=== PATIENT | female | born 1970 | race Caucasian/White ===

== ENCOUNTER 2024-01-01 14:28 | Outpatient (CLI) | payer OTHER, SELFPAY ==
[2024-01-01 14:58] LABS: Hematocrit 38.5 % (37.0-47.0); Hemoglobin 12.7 g/dL (12.0-15.0); Mean Corpuscular Volume 93.9 fl (80-100); Mean Platelet Volume 9.6 fl (7.4-10.4); Platelet Count Result 263 k/mm3 (150-375); Red Cell Distribution Width 13.1 % (11.5-14.5)
[2024-01-01 15:08] LABS: Iron 76 ug/dL (37-170)
[2024-01-01 15:09] LABS: Albumin Level 4.4 g/dL (3.5-5.1); Anion Gap 7 mmol/L (4-12); Blood Urea Nitrogen 17 mg/dL (7-17); Calcium 9.1 mg/dL (8.4-10.2); Carbon Dioxide 31 mmol/L (22-30); Chloride 97 mmol/L (98-107); Estimated Glomerular Filt Rate > 60; Glucose 94 mg/dL (65-110); Potassium 4.2 mmol/L (3.4-5.0); Sodium 135 mmol/L (137-145)
[2024-01-01 15:14] LABS: Hemoglobin A1C 5.3 % (<5.7)
[2024-01-01 15:16] LABS: Prealbumin 23.8 mg/dL (17.6-36.0)
[2024-01-05 17:33] LABS: Vitamin B1 12 nmol/L (8-30)
== END 2024-01-01 14:29 | disposition home or self-care (01) ==
LOC: ANHLAB 14:33
PROVIDERS: Visit Provider Surgery Plastic and Reconstructive Surgery
DX: R63.4 Abnormal weight loss (principal)
CPT/HCPCS: 36415; 80048; 82040; 83036; 83540; 84134; 84425; 85027

== ENCOUNTER 2024-01-09 05:52 | Day surgery (SDC) | payer OTHER, SELFPAY ==
[2023-12-20 14:36] VITALS: BMI 21.4
[2024-01-09] VITALS (10 sets, daily range): BP systolic 139–182; BP diastolic 68–94; PULSE 66–86; RESP 14–20; TEMP 36.6–37.2; O2SAT 98–100; BMI 22.2
--- NOTE | 2024-01-09 07:01 | WPDANESEPPF ---
Anes - Initial Pre Proc Eval Procedure: Operation Date: 01/09/24 07:30 Proposed Procedures p Bilateral Brachioplasty - Jose Guadalupe Chapman MD Date/Time: 01/09/24 07:01 Surgeon: Jose Guadalupe Chapman MD Pre Op Diagnosis: Skin Laxity Patient Data Age: 53 Gender: F Height: 1.65 m Weight: 60.6 kg Last Vital Signs Temp 37.2 C 01/09/24 06:25 Pulse 86 01/09/24 06:25 Resp 15 01/09/24 06:25 BP 143/94 H 01/09/24 06:25 Pulse Ox 100 01/09/24 06:25 O2 Del Method Room Air 01/09/24 06:25 Allergies Allergy/AdvReac Type Severity Reaction Status Date / Time No Known Allergies Allergy Mild Verified 01/09/24 06:23 Home Medications Medication Instructions Recorded Confirmed Type pantoprazole 40 mg tablet,delayed 40 mg PO DAILY 12/20/23 12/20/23 History release Patient hx anesthesia problems: none Family hx anesthesia problems: none Results Review: All pre-operative results and documents have been reviewed as part of the pre-operative evaluation. [facility] Surgical History Surgical History History of endometrial ablation Social History Social History (Updated 03/01/23 @ 10:48 by Huma Peters MA) Smoking status: Never smoker Second hand tobacco smoke exposure: Yes (as a child) Alcohol intake: current Drinks per week: 7 Substance use: never Substance use type: does not use Lack of Transportation: No Lack of Food: Never True Current Housing: I Have Housing Concerned About Future Housing: No Difficulty Paying Gas/Electric Bills: No Difficulty Paying for Meds: No Currently Unemployed: No Education: Master's Degree or Higher Difficulty w/ Childcare or Family Care: No Living arrangements: with family 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 Gender identity (if verbalized by the patient): Female Sexual Orientation (if Verbalized by the Patient): Straight or Heterosexual Spiritual care concerns: No Anes - Eval Final PreProcedure Day of Procedure 01/09/24 07:01 Patient weight: normal Heart: regular rate and rhythm Lungs: clear to auscultation Airway: Mallampati scale class II Neurological: alert and oriented Last oral intake: >/= 8 hours ASA classification: II Emergent: no Anesthetic plan: proceed Anesthesia type and monitoring: general LMA and standard monitoring Results Review: All pre-operative results and documents have been reviewed as part of the pre-operative evaluation. Informed Consent: The patient's anesthetic plan and its attendant risks and benefits were discussed with the patient/family/POA. Questions were solicited and answers provided to the satisfaction of the patient/family/POA.
--- NOTE | 2024-01-09 07:14 | WPDHPUPDATE1 ---
History and Physical Update Update Date/Time: 01/09/24 07:14 History and Physical has been reviewed, including an updated exam of the patient. There are NO changes in the patient's condition. Risks, benefits, and alternatives have been discussed and questions answered. Patient agrees to proceed with procedure.
--- NOTE | 2024-01-09 07:14 | W.PM.PROC2 ---
Procedure Note - Detailed Date of Procedure 01/09/24 Pre-op Diagnosis Skin Laxity Post-op Diagnosis Same Procedure Performed Bilateral brachioplasty Surgeon Jose Guadalupe Chapman MD Anesthesia General Findings Tissue removed: Right 93 grams Left 78 grams Lipoaspirate: 1,100 cc Description of Procedure Here for the above procedures. Preoperatively risks, benefits, alternatives were discussed again today in extensive detail. I want to be very realistic about the risks involved as well as expectations. Made sure answered all of their questions to satisfaction. They voiced a clear understanding. Consent obtained. Patient was marked in the preoperative holding area with their verification. Taken to the operating placed supine on the operating table. Anesthesia was provided by anesthesiology. Prepped and draped in a standard sterile fashion. Surgical time-out was taken. Stab incisions were made and I tumesced with a tumescent solution. Once adequate time for hemostasis suction lipectomy was with a 4 mm basket cannula based on S.A.F.E. technique. This was completed based on preoperative planning, intraoperative observation, and rolling pinch test which was in full agreement. I completely de-fatted the planned resection area and a strip avulsion technique was completed. Starting proximal to distal a 10 blade was used to excise the intervening skin and this was tacked as we proceed to ensure good closure. This was closed using a 2-0 Quill, 3-0 strata fix, running subcuticular 4-0 Monocryl, and tissue glue. Dressings were placed. Tolerated the procedure well. Taken to the PACU without difficulty. All instrument sponge counts were correct at the end of the case. Estimated Blood Loss 50 Drains No Packing No Pathology None sent Complications No immediate complications Condition Stable Disposition PACU
[2024-01-09] MEDS: LACTATED RINGERS 1,000 ML 30 ML IV CONT ×2 (07:19→11:33)
[2024-01-09] MEDS: ceFAZolin SODIUM 2 GM/20 ML SW SYRINGE IV PUSH (07:32)
[2024-01-09] MEDS: TRANEXAMIC ACID 1,000 MG/10 ML AMPUL 1000 MG IV PUSH (07:36)
[2024-01-09] MEDS: LACTATED RINGERS IRRIG 1,000 ML, LIDOCAINE HCL 1% LOCAL INJ 50 ML, EPINEPHrine HCL INJ ... INFILTRATE (09:00)
[2024-01-09] MEDS: ONDANSETRON INJ 4 MG/2 ML VIAL IV PUSH (11:24)
[2024-01-09] MEDS: fentaNYL CITRATE INJ (*CRX) 100 MCG/2 ML VIAL 25 MCG IV PUSH ×8 (11:28→11:52)
[2024-01-09] MEDS: diphenhydrAMINE HCl INJ 50 MG/ML VIAL 12.5 MG IV PUSH ×2 (11:49→12:03)
[2024-01-09] MEDS: oxyCODONE HCL (*CRX) 5 MG TAB IR PO (12:57)
--- NOTE | 2024-01-09 13:04 | WPDANESPN ---
Anes - Prog Note Post-Op Date/Time: 01/09/24 13:04 Cardiovascular status: normal Respiratory status: normal Airway patency: baseline Mental status: baseline Post-Op hydration status: normal Vital Signs: Last Vital Signs Temp 36.6 C 01/09/24 11:02 Pulse 66 01/09/24 12:30 Resp 14 01/09/24 12:30 BP 147/80 H 01/09/24 12:30 Pulse Ox 100 01/09/24 12:30 O2 Del Method Room Air 01/09/24 12:30 O2 Flow Rate 8 01/09/24 11:15 Pain Score (VAS): 2 I/O: Intake & Output 01/08/24 01/09/24 01/09/24 23:59 07:59 15:59 Intake Total 200 Balance 200 Post-procedural complaints: none Patient Feedback: Patient satisfied with anesthetic care. Other Findings: Patient vital signs back to baseline. Patient denies nausea and vomiting. Patient's pain under control. Patient OK for discharge.
== END 2024-01-09 13:05 | disposition home or self-care (01) ==
PROVIDERS: Visit Provider Surgery Plastic and Reconstructive Surgery
PROC: (CPT 15836; principal; 2024-01-09 07:30)
DX: L91.9 Hypertrophic disorder of the skin, unspecified (principal)
CPT/HCPCS: 15836

== ENCOUNTER 2025-04-10 05:51 | Day surgery (SDC) | payer OTHER, SELFPAY ==
[2025-04-01 09:26] VITALS: BMI 23.3
--- NOTE | 2025-04-01 10:15 | PC.NURSE ---
Spoke with Joyce at Dr. Chapman's office. Informed her that during pre op phone call pt admitted that she does occasionally use a vape with nicotine and she is aware that Dr. Chapman will require a cotinine test day of procedure.
[2025-04-10] VITALS (8 sets, daily range): BP systolic 121–165; BP diastolic 71–98; PULSE 60–83; RESP 12–16; TEMP 36–36.3; O2SAT 97–100
--- OUTSIDE RECORDS SUMMARY | 2025-04-10 06:00 | XMS_ITS | Encounter Summary ---
Author Organization [facility] Address [address] [place] [address] Care Team Providers Care Vendor Management Specialist Name Role Phone Farheen Castelan MD Primary Care Provider Reason for Visit * Reason Onset Date Comments Follow Up 10/13/2014 H pylori posirti ve biopsy from EGD on 10/09/14. RX from Dr. Asencoi for 10 day course of Omeprazole 20 mg twice daily, Clarithromycin 500mg twice daily and Flagyl 500mg three times daily . Spoke with patient to discuss test result and treatment. Denies allergies. Pharmacy is [facility]([phone])- RX called to [facility] Encounter Details Date Type Department Care Team (Late st Contact Info) Description 10/13/2014 Telephone [facility] Operating Room [address] [id number] Socorro Valente RN Follow Up (H pylori posirtive biopsy from EGD on 10/09/14. RX from Dr. Asencio for 10 day course of Omeprazole 20 mg twice daily, Clarithromycin 500mg twice daily and Flagyl 500mg three times daily . Spoke with patient to discuss test result and treatment. Denies allergies. Pharmacy is [facility]([phone])- RX called to [facility] ) Social History Tobacco Use Types Packs/Day Years Used Date Smoking Tobacco: Never Alcohol Use Standard Drinks/Week Comments Yes 0 (1 standard drink = 0.6 oz pur e alcohol) wine seldom Comments Unknown Sex and Gender Information Value Date Recorded Sex Assigned at Not on file Legal Sex Female 9:37 AM CDT Gender Identity Not on file Sexual Orientation Not on file documented as of this encounter Plan of Treatment Not on file documented as of this encounter Visit Diagnoses Not on filedocumented in this encounter Care Teams Vendor Management Specialist Relationship Specialty Start Date End Date Farheen Castelan MD PCP - General Internal Medicine 10/01/14 documented as of this encounter
--- OUTSIDE RECORDS SUMMARY | 2025-04-10 06:00 | XMS_ITS | Encounter Summary ---
Author Organization [facility] Address [address] [place] [address] Care Team Providers Care Rigging Man Name Role Phone Noemy Sky MD Primary Care Provider [phone] Encounter Details Date Type Department Care Team (Late st Contact Info) Description 06/26/2023 Telephone [facility] - Ophthalmology [address] [place] [phone] Nia Carney MD [address] [place] [address] [place] [address] Social History Tobacco Use Types Packs/Day Years Used Date Smoking Tobacco: Never Smokeless Tobacco: Never Alcohol Use Standard Drinks/Week Comments Yes 0 (1 standard drink = 0.6 oz pur e alcohol) OCCASIONALLY Comments Unknown Sex and Gender Information Value Date Recorded Sex Assigned at Not on file 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 [place] [phone] PCP - General Family Medicine 03/17/16 [employer] Certified Histologic Technician 05/23/23 documented as of this encounter
--- OUTSIDE RECORDS SUMMARY | 2025-04-10 06:01 | XMS_ITS | Clinical Summary ---
Author Organization [facility] Address [address] [place] [phone] Phone Care Team Providers Care Heading Repairer Name Role Phone Unavailable Primary Care Provider Unavailabl e Allergies No known active allergies Medications hydrOXYzine (ATARAX) 25 MG tablet Take 25 mg by mouth 3 (three) times a day if needed for itching Active pantoprazole (PROTONIX) 40 MG EC tablet Take 40 mg by mouth in the morning and 40 mg in the evening. Active sertraline (ZOLOFT) 25 MG tablet Take 25 mg by mouth 1 (one) time each day Active labetalol (NORMODYNE) 200 MG tablet Take 0.5 tablets (100 mg total) by mouth in the morning and 0.5 tablets (100 mg total) in the evening. 30 tablet 5 01/13/2025 6 Active Active Problems Problem Noted Date Diagnosed Date Essential hypertension 01/13/2025 Elevated urine level of catecholamine 01/13/2025 Encounters Date Type Department Care Team Description 01/20/2025 1:20 PM CDT Office Visit [facility] [address] [place] [phone] Miki Valencia MD Chronic kidney disease stage 2 (Primary Dx) 01/13/2025 3:20 PM CDT Office Visit [facility] [address] [place] [phone] Miki Valencia MD Chronic kidney disease stage 2 (Primary Dx); Essential hypertension from Last 3 Months Social History Tobacco Use Types Packs/Day Years Used Date Smoking Tobacco: Never Smokeless Tobacco: Never Comments Unknown Sex and Gender Information Value Date Recorded Sex Assigned at Not on file Legal Sex Female 12:00 PM MDT Gender Identity Not on file Sexual Orientation Not on file Last Filed Vital Signs Vital Sign Reading Time Taken Comments Blood Pressure 161/93 01/20/2025 1:12 PM CDT Pulse 74 01/20/2025 1:12 PM CDT Temperature - - Respiratory Rate - - Oxygen Saturation - - Inhaled Oxygen Concentration - - Weight 66.7 kg (147 lb) 01/20/2025 1:12 PM CDT Height - - Body Mass Index - - Plan of Treatment Health Maintenance Due Date Last Done Comments Pneumococcal PPSV23 Highest Risk Adult (1 of 3 - PCV13) 11/08/1987 Influenza Vaccine (#1) 2024 02/06/2014 Insurance PM INTERFACED INSURANCE
--- OUTSIDE RECORDS SUMMARY | 2025-04-10 06:01 | XMS_ITS | Clinical Summary ---
Author Organization [facility] Address [address] [address] [place] [phone] Phone Care Team Providers Care Customer Expert Name Role Phone Farheen Castelan MD Primary Care Provider Allergies No known active allergies Medications zolpidem (AMBIEN) 10 mg tablet Take 10 mg by mouth nightly as needed for Insomnia. Active lisinopril (PRINIVIL) 10 mg tablet Take 10 mg by mouth daily. Active ondansetron (ZOFRAN ODT) 4 mg Tablet, Rapid Dissolve Place 1 Tab (4 mg) under tongue every 6 hours as needed for Nausea/Emesi s. 10 Tab 0 11/05/2014 Active Active Problems Problem Noted Date Diagnosed Date HTN (hypertension), benign 11/04/2014 GERD (gastroesophageal reflux disease) 5 Immunizations Immunization Administration Dates Next Due Influenza Seasonal Unspecified Formulation IM Social History Tobacco Use Types Packs/Day Years [...] Sign Reading Time Taken Comments Blood Pressure 142/88 11/05/2014 7:30 AM CDT Pulse 58 11/05/2014 7:30 AM CDT Temperature 36.6 C (97.8 F) 11/05/2014 7:30 AM CDT Respiratory Rate 18 11/05/2014 7:30 AM CDT Oxygen Saturation 100% 11/05/2014 7:30 AM CDT Inhaled Oxygen Concentration - - Weight 104.4 kg (230 lb 2 oz) 11/05/2014 6:00 AM CDT Height 165.1 cm (5' 5) 11/04/2014 9:15 AM CDT Body Mass Index 38.29 11/04/2014 9:15 AM CDT Plan of Treatment Health Maintenance Due Date Last Done Comments DTAP/TDAP/TD VACCINES (1 - Tdap) 11/08/1987 HEPATITIS B VACCINES (1 of 3 - 19+ 3-dose series) 10/21 HPV/Cotest (21-29) 1989 CERVICAL CANCER SCREENING 1998 HPV/Cotest (30-65) 1998 PAP SMEAR 1998 BREAST CANCER SCREENING 2008 COLORECTAL SCREENING 2013 Colorectal Cancer Screening 2013 FIT-DNA Q 3 years 2013 FIT/FOBT Q 1 year 2013 Flex Sig/CT Colonography Q 5 years 2013 ZOSTER VACCINE (1 of 2) 2018 INFLUENZA VACCINE (#1) 2024 02/06/2014 Medical Devices Implanted Type Area Presales Engineer Device Identifier Shelf Expiration Date Model / Serial / Lot Seamguard Bio 60 [id number] - [id number] Implanted:Qty: 4 on 11/04/2014 by Amari Asencio MD at [facility] N/A: Stomach [employer] 06/21/2017 [id number] / / [id number] Seamguard Bio 60 [id number] - [id number] Implanted:Qty: 1 on 11/04/2014 by Amari Asencio MD at [facility] N/A: Stomach [employer] 04/23/2017 [id number] / / [id number] Insurance BCBS BLUE ACCESS/TRUE BLUE PPO Advance Directives For more information, please contact: [phone] * Full Code (Latest Code Status on File) Date Activated Date Inactivated Comments 11/04/2014 12:45 PM 11/05/2014 2:39 PM * Full Code Date Activated Date Inactivated Comments 11/04/2014 9:33 AM 11/04/2014 12:45 PM * Full Code Date Activated Date Inactivated Comments 10/09/2014 6:33 AM 10/09/2014 11:41 AM Care Teams Customer Expert Relationship Specialty Start Date End Date Farheen Castelan MD PCP - General Internal Medicine 10/01/14
--- OUTSIDE RECORDS SUMMARY | 2025-04-10 06:01 | XMS_ITS | Data Portability ---
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 Cee Mammogram: 04/25/2023, normal. Managed by OBGYN Colonoscopy: A few years ago, normal Eye exam: Annually, wears contacts Dental exam: Q6 months [email or web address] Not available 02/27/2024 09:30:42 Plan of Treatment Reminders Order Date Submit Date Provider Last Modified By Organization Details Last Modified Time Details Appointments None recorded. Lab HbA1c (hemoglobin A1c), blood 2024 025 [email or web address] 4 [facility], [address] [place], [address], 5 11:23:43 CMP, serum or plasma 2024 025 4 [facility], [address] [place], [address], 5 11:24:14 CBC w/ auto diff [address] Outpatient Lab, [address] [place], [address], 5 11:22:41 TSH, serum, reflex free T4 2024 025 [email or web address] 4 [facility], [address] [place], [address], 5 11:23:13 lipid panel, serum 2023 024 [facility], [address] [place], [address], 4 18:05:38 CMP, serum or plasma 2023 024 [facility], [address] [place], [address], 4 18:05:38 TSH, serum, reflex free T4 2023 024 [facility], [address] [place], [address], 4 18:05:37 vitamin D, 25-hydroxy, total, serum [address] Lab, [address] [place], [address], 4 08:19:04 vitamin B12 + folate, serum or blood 2023 024 [facility], [address] [place], [address], 4 18:05:38 CBC w/ auto diff 2023 024 [facility], [address] [place], [address], 4 18:05:38 HbA1c (hemoglobin A1c), blood [address] Outpatient Lab, [address] [place], [address], 4 08:19:04 Referral None recorded. Procedures upper endoscopy procedure (EGD) (PROC) 2024 [facility] (Pre-Screen), [address] [place], [address], 5 08:51:28 Surgeries None recorded. Imaging MRI, brain, w/wo contrast - Please call patient to schedule. [address] Patient Access Centralized Scheduling, Centralized Scheduling, [address] [facility], [place], [address], 5 14:32:36 Medication Orders Medrol ([place]) 4 mg tablets in a dose pack 2024 025 [facility] #[id number], [address] [facility], [place], [place], [id number], 5 08:51:49 cyclobenzap rine 10 mg tablet 2024 025 [facility] #[id number], [address] [facility], [place], [place], [id number], 5 08:51:48 alprazolam 0.25 mg tablet 2024 025 [facility] #79269, [address] [facility], [place], [place], [id number], 5 08:51:42 hydroxyzine HCl 25 mg tablet 2023 024 [facility] #64816, [address] , [place], [place], [id number], 4 09:37:15 sertraline 25 mg tablet 2023 024 [facility] #92143, [address] , [place], [place], [id number], 09:37:20 Zepbound 2.5 mg/0.5 mL subcutaneou s solution 2023 024 [email or web address] [facility], [address], [address], [place], [place], [id number], 14:22:16 metoprolol succinate ER 50 mg tablet,exte nded release 24 hr [address] [facility] #90328, [address] [place], [place], [id number], 14:22:48 escitalopra m 10 mg tablet [address] [facility] #51161, [address] [place], [place], [id number], 14:23:10 Patient TargetsNo targets recorded. Patient Instructions Encounter Date Encounter Id Patient Instructions Last Modified By Organization Details Last Modified Time 10/03/2023 [id number] NO ETOH [email or web address] Not available 03/2024 12:09:30 PT WITH GASTRIC ULCER . CONTINUE PANTOPRAZOLE 40 MG BID X 12 WEEKS . THEN REPEAT EGD . [email or web address] Not available 10/03/2023 12:10:01 08/06/2024 [id number] PT WITH HX/O LAR GE . RECOMMEND EGD F/U EVALUATION . CONT PPI BID FOR NOW. . Risks benefits and complications were explained to the pt. ( BLEEDING PERFORATION , INFECTION , ). PT VERBALIZES UNDERSTANDING AND IS WILLING TO PROCEDE . [email or web address] Not available 08/06/2024 16:03:06 Reason for Referral None Reported. Results Created Date Observation Date Name Description Value Unit Range Abnormal Flag Note LastModifiedBy Organization Detail LastModifiedTime Result Notes None recorded. Problems Name Problem SNOMED Code Status Onset Date Resolution Date Notes Provider Name and Address Organization Details Recorded Time Anti-nucl ear factor detected 177106830 Active Not Available [facility] 4 07:03:31 Insomnia 909852561 Active Not Available [facility] 4 07:03:31 Abdominal pain 34104309 Completed 02/23/2024 ZAHEER Rodriguez [address], [address], [place], [address] , [employer] 4 19:08:31 Morbid obesity 055472329 Completed Not Available [facility] 3 16:40:37 Eruption 356161707 Completed 02/23/2024 ZAHEER Rodriguez [address], [address], [place], [address] , [employer] 4 19:08:56 Hypertens monalisa disorder 84450816 Active Not Available [facility] 4 07:03:31 Neuropath y 301606821 Active Not Available [facility] 4 07:03:31 Obesity 219169029 Completed 02/27/2024 ZAHEER Rodriguez [address], [address], [place], [address] , [employer] 4 09:23:54 Cervicova ginal cytology: Low grade squamous intraepit helial lesion 647588680 Active Not Available [facility] 4 07:03:31 Greater trochante josiah pain syndrome 3572903 Active Not Available [facility] 4 07:03:31 Irregular periods 98534344 Active Not Available [facility] 4 07:03:31 Neck pain 63609737 Completed 02/27/2024 ZAHEER Rodriguez [address], [address], [place], [address] , [employer] 4 09:19:15 Spinal stenosis in cervical region 90771909 Active Not Available [facility] 4 07:03:31 Moderate protein-c alorie malnutrit ion (weight for age 60-74 percent of standard) 503291514 Active ZAHEER Rodriguez [address], [address], [place], [address] , [employer] 4 19:16:38 Left Achilles tendiniti s 85942432698 9102 Active 2019 Not Available [facility] 4 07:03:31 Arthritis 3418657 Active 2019 neck Not Available [facility] 4 07:03:31 Body mass index 30+ - obesity 251846038 Completed 202002/23/2024 ZAHEER Rodriguez [address], [address], [place], [address] , [employer] 4 19:08:51 Gastroeso phageal reflux disease without esophagit is 696428831 Active 2020 Not Available [facility] 4 07:03:31 Post-surg ical malabsorp tion 714492756 Active 2021 Not Available [facility] 4 07:03:31 Vitamin D deficienc y 39102284 Active 2021 Not Available [facility] 4 07:03:31 History of bariatric surgical procedure 501228696 Active 2021 Not Available [facility] 4 07:03:31 Poor focus 767826285 Completed 202202/27/2024 ZAHEER Rodriguez [address], [address], [place], [address] , [employer] 4 09:19:19 Essential hypertens ion 29392284 Active 2023 ZAHEER Rodriguez [address], [address], [place], [address] , [employer] 5 08:49:55 Anxiety disorder 670601029 Active 2023 Noemy Sky MD [address], [address], [place], [address] , [facility] 4 08:08:32 Acute peptic ulcer 586806555 Active 2023 Sita Yu MD [address], [address], [place], [address] , [employer] 4 12:09:20 Gastric ulcer 943948453 Active 2024 Sita Yu MD [address], [address], [place], [address] , [employer] 5 16:02:29 Cervical radiculop athy 40785692 Active 2024 ZAHEER Rodriguez [address], [address], [place], [address] , [employer] 5 08:37:30 Migraine 44122245 Active 2024 ZAHEER Rodriguez [address], [address], [place], [address] , [employer] 5 08:38:07 Anxiety 81341509 Active 2024 ZAHEER Rodriguez [address], [address], [place], [address] , [facility] 5 08:40:35 Tachycard ia 9611365 Active 2024 ZAHEER Rodriguez [address], [address], [place], [address] , [facility] 5 08:49:46 Hypoglyce jayna 081368395 Active 2024 ZAHEER Rodriguez [address], [address], [place], [address] , [facility] 5 12:06:22 Notes:back /neck problems Problem Notes None recorded. Procedures Surgical History Date Name Laterality Status Provider Name and Address Organization Details Recorded Time 04/25/19 24 Most Recent Mammogram completed Ila Lee LPN [employer] 05/10/2023 15:35:21 04/26/19 22 LAPAROSCOPY, SURGICAL, GASTRIC RESTRICTIVE PROCEDURE; REVISION OF ADJUSTABLE GASTRIC RESTRICTIVE DEVICE COMPONENT ONLY (SURG) completed Not Available [facility] 06/21/2022 16:41:37 03/11/20 21 EGD completed Not Available [facility] 16:39:55 Imaging Results None recorded. Procedure Notes None recorded. Medical Equipment None Reported. Allergies No known drug allergies Medications Name Sig Start Date Stop Date Status Note LastModified by Organization Details LastModified Time cyclobenz aprine 10 mg tablet TAKE 1 TABLET BY MOUTH THREE TIMES DAILY NEEDED active Not Available Not Available No t Available amoxicill in 500 mg capsule 09/03 completed Not Available Not Available Not Available fluconazo le 100 mg tablet TAKE 1 TABLET BY MOUTH DIRECTED 04/02 completed Not Available Not Available Not Available prednison e 10 mg tablet TAKE 4 TABLETS BY MOUTH EVERY MORNING FOR 5 DAYS 02/23 completed Not Available Not Available Not Available doxycycli ne hyclate 100 mg capsule 08/17 completed Not Available Not Available Not Available ketoconaz ole 2 % shampoo 08/21 completed Not Available Not Available Not Available clindamyc in HCl 300 mg capsule TAKE ONE CAPSULE BY MOUTH BY MOUTH THREE TIMES DAILY 12/12 completed Not Available Not Available Not Available trazodone 50 mg tablet TAKE 1 TABLET BY MOUTH EVERY DAY 08/21 completed Not Available Not Available Not Available azithromy remigio 250 mg tablet TK PO UTD 08/06 completed Not Available Not Available Not Available ibuprofen 800 mg tablet active Not Available Not Available Not Available nystatin 100,000 unit/gram topical ointment APPLY TWICE DAILY FOR 10 DAYS 06/23 completed Not Available Not Available Not Available fluconazo le 150 mg tablet TAKE 1 TABLET BY MOUTH 1 TIME 04/02 completed Not Available Not Available Not Available metoprolo l succinate ER 50 mg tablet,ex tended release 24 hr TAKE 1 TABLET BY MOUTH EVERY DAY active Not Available Not Available No t Available clarithro mycin 500 mg tablet active Not Available Not Available No t Available cephalexi n 250 mg capsule TK ONE C PO BID FOR 10 DAYS 05/11 completed Not Available Not Available Not Available hydrocodo ne 5 mg-acetam inophen 325 mg tablet TAKE 1 TABLET BY MOUTH EVERY 6 HOURS NEEDED FOR PAIN 02/22 completed Not Available Not Available Not Available meloxicam 15 mg tablet TAKE 1 TABLET BY MOUTH EVERY DAY 01/07 completed Not Available Not Available Not Available Elidel 1 % topical cream APPLY A THIN LAYER TO THE AFFECTED AREA(S) BY TOPICAL ROUTE 2 TIMES PER DAY ; RUB IN GENTLY AND COMPLETE LY active Not Available Not Available No t Available ondansetr on HCl 4 mg tablet TAKE 1 TABLET BY MOUTH EVERY 6 HOURS NEEDED FOR NAUSEA 08/06 completed Not Available Not Available Not Available cephalexi n 250 mg tablet TAKE 1 TABLET BY MOUTH TWICE A DAY FOR 10 DAYS 05/11 completed Not Available Not Available Not Available propranol ol ER 60 mg capsule,2 4 hr,extend ed release TAKE 1 CAPSULE BY MOUTH DAILY 08/21 completed Not Available Not Available Not Available penicilli n V potassium 500 mg tablet 08/17 completed Not Available Not Available Not Available metronida zole 500 mg tablet TAKE 1 TABLET BY MOUTH THREE TIMES DAILY 04/02 completed Not Available Not Available Not Available phentermi ne 37.5 mg tablet Take 1 tablet every day by oral route. 07/03 completed Not Available Not Available Not Available amlodipin e 5 mg tablet TAKE 0.5 TABLET BY MOUTH EVERY DAY 08/21 completed Not Available Not Available Not Available ciproflox acin 500 mg tablet TK 1 T PO BID active Not Available Not Available No t Available sulfameth oxazole 800 mg-trimet hoprim 160 mg tablet TAKE 1 TABLET BY MOUTH TWICE A DAY FOR 7 DAYS 02/27 completed Not Available Not Available Not Available tramadol 50 mg tablet active Not Available Not Available Not Available triamcino lone acetonide 0.1 % topical cream APPLY EXTERNAL LY TO THE AFFECTED AREA TWICE DAILY DIRECTED 08/21 completed Not Available Not Available Not Available prednison e 10 mg tablets in a dose pack Take 1 tab by mouth, 3 times a day for 3 daysTake 1 tab by mouth 2 times a day for 2 daysTake 1 tab by mouth once a day for 1 day 02/23 completed Not Available Not Available Not Available Celebrex 200 mg capsule Take 1 capsule twice a day by oral route. 05/18 completed Not Available Not Available Not Available cefadroxi l 500 mg capsule 09/03 completed Not Available Not Available Not Available meloxicam 7.5 mg tablet TAKE 1 TABLET BY MOUTH EVERY DAY active Not Available Not Available No t Available oxycodone -acetamin ophen 5 mg-325 mg tablet TAKE 1 TABLET BY MOUTH EVERY 6 HOURS NEEDED FOR PAIN 08/06 completed Not Available Not Available Not Available amoxicill in 875 mg tablet TAKE 1 TABLET BY MOUTH TWICE A DAY 06/23 completed Not Available Not Available Not Available alprazola m 0.25 mg tablet Take 1 tablet 3 times a day by oral route as needed for 30 days, for insomnia and anxiety. 2024 active Not Available Not Available Not Avai lable ciproflox acin 0.3 % eye drops 09/03 completed Not Available Not Available Not Available Kenalog 10 mg/mL suspensio n for injection In office injectio n administ ered by the provider 02/23 completed [facility]: [phone] 08-10 Not Available Not Available Not Available amlodipin e 10 mg tablet 08/06 completed Not Available Not Available Not Available benzonata te 100 mg capsule TAKE ONE CAPSULE BY MOUTH EVERY 6 HOURS 09/03 completed Not Available Not Available Not Available pantopraz ole 40 mg tablet,de layed release TAKE 1 TABLET BY MOUTH TWICE DAY 2024 active Not Available Not Available Not Avai lable erythromy remigio 5 mg/gram (0.5 %) eye ointment 02/22 completed Not Available Not Available Not Available tacrolimu s 0.1 % topical ointment active Not Available Not Available Not Available triamcino lone acetonide 0.1 % topical ointment APPLY TWICE DAILY FOR 10 DAYS 06/23 completed Not Available Not Available Not Available lisinopri l 10 mg tablet Take 1 tablet every day by oral route as directed . 2014 active Not Available Not Available Not Avai lable prednison e 50 mg tablet TAKE 1 TABLET BY MOUTH EVERY DAY FOR 5 DAYS 09/03 completed Not Available Not Available Not Available polymyxin B sulfate 10,000 unit-trim ethoprim 1 mg/mL eye drops 09/03 completed Not Available Not Available Not Available docusate sodium 100 mg capsule TAKE ONE CAPSULE BY MOUTH TWICE DAILY 08/06 completed Not Available Not Available Not Available gabapenti n 300 mg capsule TAKE ONE CAPSULE BY MOUTH 3 TIMES A DAY 10/06 completed once daily Not Available Not Available Not Available sertralin e 25 mg tablet TAKE 1 TABLET BY MOUTH DAILY DIRECTED 2024 active Not Available Not Available Not Avai lable omeprazol e 20 mg capsule,d elayed release active Not Available Not Available Not Available diclofena c sodium 75 mg tablet,de layed release Take 1 tablet twice a day by oral route. 08/17 completed Not Available Not Available Not Available hydrocort isone 2.5 % topical cream 05/11 completed Not Available Not Available Not Available hydroxyzi ne HCl 25 mg tablet TAKE 1 TABLET BY MOUTH 3 TIMES DAILY NEEDED FOR ANXIETY 2024 active Not Available Not Available Not Avai lable codeine 10 mg-guaife nesin 100 mg/5 mL oral liquid TAKE 10 ML BY MOUTH AT BEDTIME NEEDED FOR COUGH 09/03 completed Not Available Not Available Not Available gabapenti n 100 mg capsule 05/11 completed Not Available Not Available Not Available metoprolo l succinate ER 25 mg tablet,ex tended release 24 hr TAKE 1 TABLET BY MOUTH EVERY DAY 07/26 completed Not Available Not Available Not Available ibuprofen 600 mg tablet TK 1 T PO TID WF active Not Available Not Available No t Available levofloxa remigio 750 mg tablet TAKE 1 TABLET BY MOUTH EVERY DAY 04/02 completed Not Available Not Available Not Available zolpidem 10 mg tablet TAKE 1 TABLET BY MOUTH AT BEDTIME 02/27 completed Not Available Not Available Not Available methylpre dnisolone 4 mg tablets in a dose pack FOLLOW PACKAGE DIRECTIO NS active Not Available Not Available No t Available albuterol sulfate HFA 90 mcg/actua tion aerosol inhaler INL 2 PUFFS PO QID active Not Available Not Available No t Available propranol ol 20 mg tablet TAKE 1 TABLET BY MOUTH THREE TIMES DAILY 08/21 completed Not Available Not Available Not Available ketoconaz ole 2 % topical cream active Not Available Not Available Not Available ondansetr on 4 mg disintegr ating tablet active Not Available Not Available Not Available methylphe nidate ER 18 mg tablet,ex tended release 24 hr TAKE 1 TABLET BY MOUTH EVERY MORNING 08/21 completed Not Available Not Available Not Available betametha sone dipropion ate 0.05 % lotion APPLY TO SCALP EVERY NIGHT AT BEDTIME 08/21 completed Not Available Not Available Not Available Ambien 5 mg tablet Take 1 tablet twice a day by oral route as directed . 06/03 completed Internal note: Suzan sewell note: spoke to pharmacy and changed the RX Not Available Not Available Not Available Lovenox 40 mg/0.4 mL subcutane ous syringe Inject 0.4 mL every day by subcutan eous route as directed for 10 days. 07/26 completed Not Available Not Available Not Available diazepam 5 mg tablet TAKE ONE-HALF TO ONE TABLET BY MOUTH NEEDED AT BEDTIME 09/03 completed Not Available Not Available Not Available progester one micronize d 100 mg capsule TAKE 1 CAPSULE BY MOUTH EVERY NIGHT 08/06 completed Not Available Not Available Not Available amoxicill in 875 mg-potass ium clavulana te 125 mg tablet TAKE 1 TABLET BY MOUTH TWICE A DAY 05/11 completed Not Available Not Available Not Available methylphe nidate ER 27 mg tablet,ex tended release 24 hr TAKE 1 TABLET BY MOUTH EVERY MORNING 08/21 completed Not Available Not Available Not Available escitalop penny 10 mg tablet TAKE 1 TABLET BY MOUTH EVERY DAY 08/06 completed Not Available Not Available Not Available June05/12 (21) 1 mg-20 mcg tablet TAKE 1 TABLET BY MOUTH EVERY DAY 05/05 completed Not Available Not Available Not Available bupropion HCl XL 150 mg 24 hr tablet, extended release TAKE 1 TABLET BY MOUTH EVERY DAY 08/21 completed Not Available Not Available Not Available nitrofura ntoin monohydra te/macroc rystals 100 mg capsule TAKE 1 CAPSULE BY MOUTH TWICE DAILY 04/02 completed Not Available Not Available Not Available eszopiclo ne 3 mg tablet TAKE 1 TABLET BY MOUTH AT BEDTIME 08/06 completed Not Available Not Available Not Available eszopiclo ne 1 mg tablet TAKE 1 TABLET BY MOUTH AT BEDTIME 08/21 completed Not Available Not Available Not Available Lyrica 75 mg capsule Take 1 capsule twice a day by oral route. 05/18 completed Not Available Not Available Not Available Rozerem 8 mg tablet Take 1 tablet every day by oral route. 05/18 completed Not Available Not Available Not Available calcium once daily 2014 active Not Available Not Available Not Avai lable Fish Oil once daily 2014 active Not Available Not Available Not Avai lable cyclobenz aprine 07/31 completed Not Available Not Available Not Available Mobic 06/23 completed as needed Not Available Not Available Not Available multivita min 08/06 completed Not Available Not Available Not Available Calcium Citrate + D 08/21 completed Not Available Not Available Not Available lidocaine (PF) 10 mg/mL (1 %) injection solution In office injectio n administ ered by the provider 02/23 completed [facility]: [phone] Not Available Not Available Not Available doxycycli ne monohydra te 40 mg capsule,i mmediate - delay release 08/17 completed Not Available Not Available Not Available Nascobal 500 mcg/spray nasal spray active Not Available Not Available Not Available SulfaClea nse 8-4 8 %-4 % topical suspensio n active Not Available Not Available Not Available Topicort 0.25 % topical spray active Not Available Not Available Not Available Lortab Elixir 10 mg-300 mg/15 mL oral solution active Not Available Not Available Not Available Soolantra 1 % topical cream 08/17 completed Not Available Not Available Not Available Vitamin B12 08/06 completed Not Available Not Available Not Available FreeStyle Tosha 3 Plus Sensor device Use on upper arm for CGM, change every 10 days 2024 active Not Available Not Available Not Avai lable Zepbound 2.5 mg/0.5 mL subcutane ous solution Inject 0.5 ml SQ every 10-14 days for weight maintena nce 08/06 completed Not Available Not Available Not Available Vitals Date Recorded Body height Body mass index (BMI) Body weight Oxygen saturation Heart rate Systolic And Diastolic Provider Name and Address Organization Details Last Updated DateTime 5 166.37 cm 21 kg/m2 11678.8 2 g 98 % 74 /min 106/66 mm[Hg] ANGEL Talamantes [place] [facility] [employer] [facility] 5 14:21:41 Date Recorded Body height Body mass index (BMI) Body weight Body temperature Heart rate Oxygen saturation Systolic And Diastolic Provider Name and Address Organization Details Last Updated DateTime 4 166.37 cm 22.9 kg/m2 38615.9 3 g 97.7 [degF] 78 /min 98 % 162/98 mm[Hg] Leti Garrido RN [facility] 4 07:53:55 Date Recorded Body height Body mass index (BMI) Body weight Heart rate Oxygen saturation Systolic And Diastolic Provider Name and Address Organization Details Last Updated DateTime 4 166.37 cm 23.1 kg/m2 91178.5 2 g 75 /min 98 % 104/62 mm[Hg] ANGEL Talamantes [place] [facility] 4 10:51:27 Date Recorded Body height Body mass index (BMI) Body weight Body temperature Oxygen saturation Heart rate Systolic And Diastolic Provider Name and Address Organization Details Last Updated DateTime 5 165.1 cm 23.9 kg/m2 66132.5 1 g 99.9 [degF] 95 % 78 /min 168/88 mm[Hg] Billie Haley RN [facility] 5 08:27:11 Date Recorded Body height Body mass index (BMI) Body weight Body temperature Heart rate Respiratory rate Oxygen saturation Systolic And Diastolic Provider Name and Address Organization Details Last Updated DateTime 4 166.37 cm 21.9 kg/m2 08604.6 6 g 97.5 [degF] 81 /min 18 /min 99 % 130/82 mm[Hg] ZAHEER Rodriguez [address] [facility], [address], [place], [address], [place] [facility] 4 09:35:23 Social History Question Answer Notes LastModified by Organizat ion Details LastModified Time Tobacco Smoking Status Never Smoker Not Available [facility] 06/21/2022 16:39:54 Do You Use Your Seat Belt Or Car Seat Routinely? Yes Information not available 02/27/2024 Do You Participate In Social Media? Yes Information not available 02/27/2024 Sex: Unknown Functional Status Question Answer Note LastModified by Organizat ion Details LastModified Time What is your level of alcohol consumption? 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 [id number] [facility] Information not available 02/27/2024 Family History Nothing Reported Notes:adopted @ Medical History Condition Response HYPERTENSION Y Gynecological History Statement/Question Response Most Recent Mammogram 04/25/2023 Obstetrics History GPAL:G 0 P 0 0 0 0 Immunizations Vaccine Type Date Status Note Provider Nam e and Address Organization Details Recorded Time COVID-19, mRNA, LNP-S, PF, 30 mcg/0.3 mL dose 05/10/2020 completed ZAHEER Rodriguez [facility], [address] [address], [place], [address], [facility] [employer] [facility] [employer] 02/23/2024 19:15:30 COVID-19, mRNA, LNP-S, PF, 30 mcg/0.3 mL dose 05/31/2020 completed ZAHEER Rodriguez [place] [facility], [address] [address], [place], [address], Immediately [facility] [employer] 02/23/2024 19:15:30 Influenza, high-dose, trivalent, PF 03/20/2014 completed ZAHEER Rodriguez [facility] [facility], [address] [address], [place], [address], Immediately [facility] [employer] 02/23/2024 19:15:31 Past Encounters Encounter ID Performer Location Encounter Start Date Encounter Closed Date Diagnosis/Indication Diagnosis SNOMED-CT Code Diagnosis ICD10 Code Diagnosis IMO Codes Diagnosis Note [id number] VJ Verdin S_G Ortho Chris Mclain [address] [place] [address] 01/07/2021 00:00:00 01/07/2021 15:24:59 [id number] _ATHN_MIGR ATION_1 _ATHENA_M IGRATION_ DEFAULT_1 _1 , 02/23/2021 00:00:00 02/23/2021 16:55:53 [id number] VJ Merrill [address] [address] 02/28/2021 00:00:00 02/28/2021 16:18:43 [id number] _ATHN_MIGR ATION_1 _ATHENA_M IGRATION_ DEFAULT_1 _1 , 03/24/2021 00:00:00 03/25/2021 10:58:55 [id number] _ATHN_MIGR ATION_1 _ATHENA_M IGRATION_ DEFAULT_1 _1 , 04/11/2021 00:00:00 04/11/2021 18:58:43 [id number] _ATHN_MIGR ATION_1 _ATHENA_M IGRATION_ DEFAULT_1 _1 , 05/16/2021 00:00:00 05/16/2021 16:46:48 [id number] _ATHN_MIGR ATION_1 _ATHENA_M IGRATION_ DEFAULT_1 _1 , 07/26/2021 00:00:00 07/26/2021 12:16:19 [id number] Noemy Sky MD [address] [address] 04/02/2023 08:01:13 04/02/2023 08:42:48 Insomnia 614338234 G47.09 Will do trial of trazodone, but symptoms most likely stem from anxiety/OC D. Poor focus 532587099 H52 .7 Anxiety vs. OCD vs. ADHDPt. 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 She denies panic attacks. No depression .She is aware she will need eval by psychiatry to get formal diagnosis of ADHD to be able to start any stimulant medication and will schedule on her own.Will do a trial of bupropion. [id number] Noemy Sky MD [address] [address] 08/22/2023 07:43:15 08/22/2023 08:17:06 Essential hypertension 26991161 I10 add metoprolol ER 50 mg dailyconti nue amlodipine 10 mg dailyf/u by portal in 2 weeks Anxiety disorder F41.9 escitalopr am 10 mg po qday with food [id number] Sita Yu MD [facility] General Surgery [address] [address] 10/03/2023 10:46:16 10/03/2023 11:42:53 Acute peptic ulcer 415013708 K27.[id number] MD [address] [address] 02/27/2024 09:08:08 02/27/2024 10:06:18 Adult health examination 818452431 Z00.00 Health maintance reviewedPT overall healthyPra cticing healthy diet and physical exerciseDi scussed importance of high protein and vitamin diet Anxiety disorder F41.9 Increased anxiety and difficulty focusing. Trouble with racing thoughts while trying to sleep Insomnia 128214834 G47.0 9 Largely related to anxiety and inability to shut off her thoughts. 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 Typically resolves with steroids Migraine 46206609 G43.90 9 [address]707 Current headache rated /10States this is persistent Did have a CT 09/2024 which was benignNurt ec given in office, advised to take EOD Anxiety 39662227 F41.9 90598 Increased anxiety and difficulty focusing. Trouble with racing thoughts while trying to sleep Tachycardia 2724140 R00. 0 90155 EpisodicCu rrently taking metoprolol Freestyle tosha given in office Essential hypertension 43500148 I10 50244 has hypertensi ve episodes that are symptomati c but is hypotensiv e at baseline Health Concerns Section Related Observation LastModified by Organization Detai ls LastModified Time None Recorded Concern Status LastModified by Organization Details LastModified Time None Recorded Advance Directives Directive None Recorded Payers Insurance Date Sequence Insurance Name Policy Number Policy De Jesus Covered Member ID De Jesus Member ID Guarantor Name 12/12/2024 1 [place] [id number] Salena Khan [id number] Salena Khan 12/12/2024 1 [place] [id number] Salena Khan [id number] Salena Khan 12/25/2024 1 UMR [id number] Salena Khan [id number] Salena Khan Notes Date Note Type Note Provider Name and Address Organization Details Recorded Time 08/22/2023 text/html ROS as noted in the HPI Had ER visit on , thought she might she have been dehydrated. 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 [facility] 09/09/2023 15:00:23 10/03/2023 text/html ROS as noted in the HPI SALENA WAS SEEN IN THE OFFICE TODAY FOR A F/U . PT HAS PUD X 2 IN THE PYLORIC CHANNEL. SHE REPORTS DOING BETTER . SHE IS OFF ETOH , AND SHE IS ON PANTOPRAZOLE 40 MG BID. TODAY SHE REPORTS FEELING BETTER . Sita Yu MD [address], [address], [place], [address], [facility] [employer] [facility] 10/03/2023 12:10:20 02/27/2024 text/html Salena Khan is a 53-year-old female patient here today to establish care. She was previously under the care of Dr. Sky her past medical history significant for hypertension. This is currently managed with lifestyle implementations Her BP on arrival is 130/82 she has a history of gastric bypass. She also took semaglutide for weight maintenance, but has been off of it for a while. She would like to restart a maintenance dose. She has a history of anxiety. She has taken anxiety medications in the past and was treated for ADHD for a short time. She found stimulants ineffective. She would like to try another anxiety medication. She has a history of insomnia. In the past she has taken trazadone and lunesta. She states that with these she could fall asleep but could not maintain sleep. She states she has racing thoughts that do not allow her to sleep. History of acid reflux and peptic ulcers, well managed with pantoprazole 40 mg once daily. Had an EGD a few weeks ago and found that ulcers had healed. CBC and CMP WNLs 09/21/23, last TSH, A1C, lipid panel unknown. Would like annual labs today Flu shot: Will get at work this yearCOVID vaccines: 05/10/2020, 05/31/2020Tdap: UTD per ptShingrix: [facility]: 02/2023, scheduled for end of 02/[address] Sortommogram: 04/25/2023, normal. Managed by OBGYNColonoscopy: A few years ago, normalEye exam: Annually, wears contactsDental exam: Q6 months ZAHEER Rodriguez [address], [address], [place], [address], [employer] 02/27/2024 10:05:44 08/06/2024 text/html ROS as noted in the HPI SALENA WAS SEEN IN THE OFFICE TODAY FOR A F/U. PT IS S/P SUNNY- EN- Y GBY WT LOSS SURGERY . PT DEVELOPED A SEVERE ANASTAMOTIC ULCER. . SHE IS S/P EGD . VIV NEGATIVE . PT IS A MODERATE WINE DRINKER . SHE IS STILL TAKING PANTOPRAZOLE 40 MG BID. SHE REPORTS OCCASSIONAL EPIGASTRIC DISCOMFORT. Sita Yu MD [address], [address], [place], [address], [employer] 08/06/2024 16:03:32 12/12/2024 text/html Salena Khan is a 54 year old female patient here today for a sick concern. She notes she has been experiencing episodes of ice pick headaches on the left side of her head. She states when this occurs she is light-headed, dizzy, diaphorectic, hypertensive, and tachycardiac. She states her blood pressure will reach as high as 200s/100s. She states she has has blood pressure and tachycardiac episodes for many years and has seen cardiology for this in the past and had no resolution.She is not drinking a lot of caffeine at this time.She is taking metoprololBP is random these days. Elevated today at 168/88 She notes the headaches are currently present and are persistent. She also notes that she has issues in the C-spine and this is flaring right now. She notes that she is not sleeping now. She can fall asleep but typically wakes up around midnight and cannot fall back asleep.She has previously taken ambien, trazodone, lunesta.Insomnia closely related to racing thoughts Jarred Rodriges, ZAHEER [address], [address], [place], [address], Immediately [facility] [employer] 12/12/2024 11:15:05 OBGyn Episode No OBEpisode recorded.
--- OUTSIDE RECORDS SUMMARY | 2025-04-10 06:01 | XMS_ITS | Clinical Summary ---
Author Organization [facility] [address] Address [address] 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 This disclosure is being madepursuant to the Care Everywhere program and may not contain all information available regarding this patient. Last updated 18.[facility] Allergies No known active allergies Medications * Be aware that medications may not be up to date on this document. Alwaysverify current medications with the patient. multivitamin daily (THERAGRAN) tablet Take 1 (one) tablet by mouth daily with food Active biotin 5 MG tablet Take 1 (one) tablet by mouth once daily Active Progesterone 100 MG capsule Take 1 (one) capsule by mouth 4 Active magnesium 30 MG tablet Take 1 (one) tablet by mouth once daily Active eszopiclone (Lunesta) 3 MG tablet Take 1 (one) tablet by mouth at bedtime 4 Active triamcinolone acetonide (Kenalog) 0.1 % cream APPLY EXTERNALLY TO THE AFFECTED AREA TWICE DAILY DIRECTED 4 Active metoprolol succinate XL 24hr (Toprol XL) 50 MG tablet Take 1 (one) tablet by mouth once daily Active erythromycin (Romycin) 5 MG/GM ophthalmic ointment Apply 4x/d by placing a small amount of ointment on the tip of a qtip and then smear a thin glaze over the stitches. Also dab a small amount at the inner corner of the eye. As you blink, it will melt in. 3.5 g 3 Active escitalopram (Lexapro) 10 MG tablet Take 1 (one) tablet by mouth once daily Active amLODIPine (Norvasc) 10 MG tablet Take 1 (one) tablet by mouth once daily Active Active Problems Problem Noted Date Diagnosed Date Dermatochalasis of both upper eyelids 09/03/2023 Mechanical ptosis of bilateral eyelids Abdominal pain 08/17/2023 08/17/2023 Greater trochanteric pain syndrome 08/17/2023 08/17/2023 Hypertensive disorder 08/17/2023 08/17/2023 Insomnia 08/17/2023 08/17/2023 Irregular periods 08/17/2023 08/17/2023 Neck pain 08/17/2023 08/17/2023 Positive antinuclear antibody 08/17/2023 Skin eruption 08/17/2023 08/17/2023 Low grade squamous intraepit helial lesion (LGSIL) on cervicovaginal cytologic smear 05/23/2023 05/23/2023 Morbid obesity 05/23/2023 05/23/2023 Spinal stenosis in cervical region 05/23/2023 05/23/2023 ADHD 04/23/2023 Anxiety 04/23/2023 History of bariatric surgery 05/15/2021 Postoperative malabsorption 05/15/202107/23 Vitamin D deficiency 05/15/2021 08/17/2023 Shortness of breath 11/29/2020 08/17/2023 Tachycardia 11/29/2020 08/17/2023 Arthritis 06/23/2019 05/23/2023 Overview (05/23/2023): neck Achilles tendinitis of left lower extremity 05/201908/17/2023 GERD (gastroesophageal reflux disease) 5 05/23/2023 Family History * Patient is adopted Relation Name Status Comments Father Mother Alive Social History Tobacco Use Types Packs/Day Years Used Date Smoking Tobacco: Never Smokeless Tobacco: Never Tobacco Cessation:Counseling Given: Not Answered Alcohol Use Standard Drinks/Week Comments Yes 0 (1 standard drink = 0.6 oz pur e alcohol) OCCASIONALLY Comments No Sex and Gender Information Value Date Recorded Sex Assigned at Not on file 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 Gender Identity Not on file Sexual Orientation Not on file 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 Not on file Not on file Last Filed Vital Signs Vital Sign Reading Time Taken Comments Blood Pressure 126/78 09/03/2023 9:04 AM CDT Pulse 68 09/03/2023 9:04 AM CDT Temperature 36.8 C (98.2 F) 09/03/2023 8:50 AM CDT Respiratory Rate 12 09/03/2023 9:04 AM CDT Oxygen Saturation 99% 09/03/2023 9:04 AM CDT Inhaled Oxygen Concentration - - Weight 61.2 kg (135 lb) 08/30/2023 9:26 AM CDT Height 165.1 cm (5' 5) 08/30/2023 9:26 AM CDT Body Mass Index 22.47 08/30/2023 9:26 AM CDT Plan of Treatment Health Maintenance Due Date Last Done Comments COLOGUARD (AGES 45-75) - COL ON CA SCREENING 1968 COLON MONITORING 1968 COLONOSCOPY - COLON CA SCREENING 1968 CT COLONOGRAPHY - COLON CA SCREENING 1968 Colorectal Cancer Screening 1968 FIT - COLON CA SCREENING 1968 FLEX SIG - COLON CA SCREENING 1968 LIPID TESTING 1968 MAMMOGRAM 1968 HIV SCREENING 11/08/1983 HEPATITIS C SCREENING 11/03/1986 DTAP/TDAP/TD VACCINES (1 - Tdap) 11/08/1987 HEPATITIS B VACCINE (1 of 3 - 19+ 3-dose series) 11/08/1987 PAP SMEAR 1989 PNEUMOCOCCAL VACCINE 50+ (1 of 1 - PCV) 2018 ZOSTER VACCINE (1 of 2) 2018 DEPRESSION SCREENING 04/23/2024 COVID-19 VACCINE (1 - 2024-2 6 season) 2024 INFLUENZA VACCINE (#1) 2024 4, 02/06/2014 HIB VACCINE Aged Out No longer eligi ble based on patient's age to complete this topic HPV VACCINE Aged Out No longer eligi ble based on patient's age to complete this topic MENINGOCOCCAL (Group B) VACCINE SHARED DECISION-MAKING Aged Out No longer eligible based on patient's age to complete this topic MENINGOCOCCAL GROUPS A/C/Y/W VACCINE Aged Out No longer eligible b ased on patient's age to complete this topic Insurance [phone] (Work) [id number] [place] [address] [facility] Care Teams Gum Rolling Machine Tender Relationship Specialty Start Date End Date Noemy Sky MD [address] [place] [place] [phone] PCP - General Family Medicine 03/17/16 [facility] 05/23/23
[2025-04-10] MEDS: LACTATED RINGERS 1,000 ML 30 ML IV CONT ×2 (06:22→13:35)
[2025-04-10] MEDS: TRANEXAMIC ACID 1,000 MG/10 ML AMPUL 1000 MG IV PUSH (06:32)
--- NOTE | 2025-04-10 07:20 | WPDHPUPDATE1 ---
History and Physical Update Update Date/Time: 04/10/25 07:20 History and Physical has been reviewed, including an updated exam of the patient. There are NO changes in the patient's condition. Risks, benefits, and alternatives have been discussed and questions answered. Patient agrees to proceed with procedure.
--- NOTE | 2025-04-10 07:20 | W.PM.PROC2 ---
Procedure Note - Detailed Date of Procedure 04/11/25 Pre-op Diagnosis Skin Laxity Post-op Diagnosis Same Procedure Performed Face / neck lift with facial fat grafting and buccal fat removal Surgeon Jose Guadalupe Chapman MD Anesthesia General Findings Facial fat grafting: R rastafari 3cc L rastafari 3cc R gonial angle 2cc L gonial angle 2cc R pre-jowl 2cc L pre-jowl 2cc R malar 2cc L malar 2cc Description of Procedure Preoperatively the risks, benefits, alternatives were discussed in extensive detail. I want her to be very realistic about the risks involved as well as expectations. Reviewed what we can and cannot accomplish. Realistic expectations of outcome. All questions were answered to satisfaction. Consent obtained. Taken to the operating room placed supine on the operating room table. Anesthesia provided by anesthesiology. Surgical time-out was taken. Tube sutured into place to the first Incisor. Prepped and draped in standard sterile fashion. Local anesthesia was provided with a tumescent solution using lidocaine and epinephrine. For the abdomen (fat harvest site) 11 blade was used to make a stab incision at previous sites and [employer]aire infiltration cannula utilized. For the face a 19 guage spinal needle. Fat harvest Once adequate time for hemostasis suction lipectomy was completed on the abdomen with a 3mm hand suction on a 10cc syringe. This was allowed to gravity separate. Neck Once adequate time for effect a fifteen blade used to make a submental incision. Dissection was continued down identified platysma muscle. Elevated skin flaps with good adiposity of the deep surface throughout the neck just what was necessary centrally. I then proceeded sub platysmal and elevated bilateral. Care was taken to make sure there was a good smooth contour under the submental area. A small platysmal backcut was completed inferior to the Hyoid transversely. Platysma muscle was repair centrally with 2-0 Vicryl. Face I then proceeded made the remainder of the incisions. I elevated skin flaps with good adequate adiposity of the deep surface to have good contour. This was continued for all the areas necessary. I then incised the SMAS from inferior to the gonial angle towards the lateral orbital rim slowly elevating with care taken to monitor for any twitches / for facial nerves. Elevated what was necessary to provide complete release of SMAS. The SMAS was then elevated and sutured into place with 2-0 Nylon in a horizontal mattress fashion to the desired contour. Created a short backup at the mandibular boarder. Created a mastoid crevasse along the anterior aspect of the mastoid and the platysma was secured with 2-0 Ethibond. Irrigated with Betadine solution. There was no evidence of nerve injury throughout the procedure. Copious irrigated with saline solution and verified strict hemostasis. Then again irrigated with betadine solution. The skin flaps were just placed into position without any tension. Trimmed as necessary. Preauricular was closed with 5-0 nylon. Postauricular / hairline with 5-0 chromic. Submental was closed using 3-0 Monocryl followed by 5-0 Nylon Fat grafting 18 gauge was used to make puncture sites as needed for fat grafting. Fat had been reduced with tulip kit to 1.2 microns. Infiltrated deep with 0.8mm cannula on 1 cc syringes. Small volume suction lipectomy completed submental as well with 3mm cannula. Hemostatic net placed with 3-0 Nylon. Buccal fat I proceeded intraoral for buccal fat removal. 1% lidocaine with epi used to anesthetized locally. Between stensons duct and bite plane transverse incision made. Clamp used to dudley muscle and attempted to deliver fat. She had minimal buccal fat identified and did not proceed with additional removal. Closed with 3-0 Chromic. Dressings were placed. Patient was awoken without difficulty. All instrument sponge counts were correct at the end of the case. Estimated Blood Loss 30 Drains No Packing No Pathology None sent Complications No immediate complications Condition Stable Disposition PACU
--- NOTE | 2025-04-10 07:24 | WPDANESEPPF ---
Anes - Initial Pre Proc Eval Procedure: Operation Date: 04/10/25 07:30 Proposed Procedures p Face and Neck Lift, Facial Fat Grafting and Buccal Fat Pad Removal - Jose Guadalupe Chapman MD Date/Time: 04/10/25 07:24 Surgeon: Jose Guadalupe Chapman MD Pre Op Diagnosis: Skin Laxity Patient Data Age: 54 Gender: F Height: 1.65 m Weight: 68.25 kg Last Vital Signs Temp 97.4 F L 04/10/25 06:19 Pulse 60 04/10/25 06:19 Resp 16 04/10/25 06:19 BP 165/86 H 04/10/25 06:19 Pulse Ox 100 04/10/25 06:19 O2 Del Method Room Air 04/10/25 06:19 Allergies Allergy/AdvReac Type Severity Reaction Status Date / Time No Known Allergies Allergy Mild Verified 04/10/25 06:18 Home Medications ?Medication ?Instructions ?Recorded ?Confirmed ?Type pantoprazole 40 mg tablet,delayed 40 mg PO DAILY 12/20/23 04/10/25 History release alprazolam 0.25 mg tablet 0.25 mg PO TID PRN anxiety 04/01/25 04/10/25 History hydroxyzine HCl 25 mg tablet 25 mg PO HS 04/01/25 04/10/25 History labetalol 200 mg tablet 200 mg PO DAILY 04/01/25 04/10/25 History sertraline 25 mg tablet 25 mg PO HS 04/01/25 04/10/25 History Patient hx anesthesia problems: other (wake up emotional) Family hx anesthesia problems: none Results Review: All pre-operative results and documents have been reviewed as part of the pre-operative evaluation. [facility] Past Medical History Medical History Pyloric ulcer Surgical History Surgical History S/P brachioplasty History of endometrial ablation Social History Social History (Updated 03/11/25 @ 14:48 by ANGEL Earl) Smoking status: Never smoker Tobacco type: e-cigarettes/vaping Second hand tobacco smoke exposure: Yes Alcohol intake: current Drinks per week: 7 Substance use: never Substance use type: does not use Lack of Transportation: No Lack of Food: Never True Current Housing: I Have Housing Concerned About Future Housing: No Difficulty Paying Gas/Electric Bills: No Difficulty Paying for Meds: No Currently Unemployed: No Education: Master's Degree or Higher Difficulty w/ Childcare or Family Care: No Living arrangements: with family Additional living arrangements comments: 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 Informed Consent: The patient's anesthetic plan and its attendant risks and benefits were discussed with the patient/family/POA. Questions were solicited and answers provided to the satisfaction of the patient/family/POA.
[2025-04-10] MEDS: LIDOCAINE 1% LOCAL INJ 10 ML VIAL 50 ML INFILTRATE (07:33)
[2025-04-10] MEDS: ceFAZolin SODIUM 2 GM/20 ML SW SYRINGE IV PUSH (07:33)
[2025-04-10] MEDS: BALANCED SALT SOLN OPHTH IRRIG 30 ML BTL 60 ML (08:15)
[2025-04-10] MEDS: NACL 0.9% IRRIG BAG 1,000 ML, LIDOCAINE 1% LOCAL INJ 75 ML, EPINEPHrine HCL INJ 3 MG INFILTRATE (08:30)
[2025-04-10] MEDS: NACL 0.9% IRRIG POUR BOTTLE 900 ML, GENTAMICIN SULFATE INJ 160 MG, ceFAZolin 2 GM, POVI... IRRIGATION (08:30)
[2025-04-10] MEDS: LIDO 1%/EPINEPHRINE 1:100,000 20 ML VIAL INFILTRATE (13:12)
[2025-04-10] MEDS: ONDANSETRON INJ 4 MG/2 ML VIAL IV PUSH (14:01)
[2025-04-10] MEDS: oxyCODONE HCL (*CRX) 5 MG TAB IR PO (14:30)
== END 2025-04-10 15:05 | disposition home or self-care (01) ==
PROVIDERS: Visit Provider Surgery Plastic and Reconstructive Surgery
PROC: (CPT 15824; principal; 2025-04-10 07:30)
DX: Z41.1 Encounter for cosmetic surgery (principal); L57.4 Cutis laxa senilis
CPT/HCPCS: 15825; 15829; 15773; 15839; J3290